=== PATIENT | female | born 1945 | race Caucasian/White ===

== ENCOUNTER 2022-01-13 08:43 | Outpatient (CLI) | payer MEDICARE ==
[2022-01-13 10:40] LABS: Estimated GFR-MDRD - POC Greater than 90
== END 2022-01-13 08:44 | disposition home or self-care (01) ==
LOC: CSHCT 08:43
PROVIDERS: ATTEND Internal Medicine Hematology & Oncology
DX: C82.08 Follicular lymphoma grade I, lymph nodes of multiple sites (principal)
CPT/HCPCS: 71260; 74177; 82565

== ENCOUNTER 2022-08-05 10:05 | Outpatient (CLI) | payer MEDICARE ==
[2022-08-05] MEDS ORDERED: Iopamidol 300 61% 100 ML VIAL FS ONE (12:48)
== END 2022-08-05 10:06 | disposition home or self-care (01) ==
LOC: CSHCT 10:05
PROVIDERS: ATTEND Internal Medicine Hematology & Oncology
DX: C85.90 Non-Hodgkin lymphoma, unspecified, unspecified site (principal); C85.93 Non-Hodgkin lymphoma, unspecified, intra-abdominal lymph nodes; C85.96 Non-Hodgkin lymphoma, unspecified, intrapelvic lymph nodes; C85.92 Non-Hodgkin lymphoma, unspecified, intrathoracic lymph nodes
CPT/HCPCS: 71260; 74177; 82565; Q9967

== ENCOUNTER 2023-08-03 09:15 | Outpatient (CLI) | payer MEDICARE ==
[2023-08-03] MEDS ORDERED: Iopamidol 300 61% 100 ML VIAL FS ONE (09:48)
== END 2023-08-03 09:16 | disposition home or self-care (01) ==
LOC: CSHCT 09:15
PROVIDERS: ATTEND Internal Medicine Hematology & Oncology
DX: C85.90 Non-Hodgkin lymphoma, unspecified, unspecified site (principal); R59.1 Generalized enlarged lymph nodes
CPT/HCPCS: 71260; 74177

== ENCOUNTER 2023-08-18 10:57 | Outpatient (CLI) | payer MEDICARE | END 2023-08-18 10:58 | disposition home or self-care (01) | LOC: CSHRAD 10:57 | PROVIDERS: ATTEND Family Medicine | DX: R04.2 Hemoptysis (principal); Z85.72 Personal history of non-Hodgkin lymphomas; I51.7 Cardiomegaly; R59.1 Generalized enlarged lymph nodes | CPT/HCPCS: 71046 ==

== ENCOUNTER 2023-09-02 10:45 | Inpatient (IN) | payer MEDICARE ==
[2023-09-02 14:30] LABS: #Monocytes 0.3 10x3/uL (0.0-1.1); #Neutrophils 3.4 10x3/uL (1.5-8.4); %Basophils 0.4 % (0.0-2.0); %Eosinophils 0.9 % (0.0-6.0); %Lymphocytes 19.4 % (18.0-47.0); %Monocytes 6.7 % (0.0-10.0); %Neutrophils 72.4 % (40.0-75.0); Hematocrit 28.5 % (34.9-44.5); Mean Corpuscular HGB CONC 31.6 g/dL (32.0-36.0); Mean Corpuscular Hemoglobin 25.1 pg (27.0-33.0); Mean Corpuscular Volume 79.4 fl (81.6-98.3); Mean Platelet Volume 9.7 fl (7.4-10.4); Platelet Count 80 10x3/uL (150-450); RBC Distribution Width 13.6 % (11.5-14.5); Red Blood Cell (RBC) Count 3.59 10x6/uL (3.90-5.03); White Blood Cell (WBC) Count 4.7 10x3/uL (3.5-10.5)
[2023-09-02 14:40] LABS: ALT (SGPT) 18 U/L (8-55); AST (SGOT) 18 U/L (5-34); Alkaline Phosphatase 70 U/L (40-110); Anion Gap 13 mmol/L (10-20); BUN (Urea Nitrogen) 14 mg/dL (9.8-20.1); Bilirubin, Total 0.3 mg/dL (0.2-1.2); Calc. Creatinine Clearance 0 mL/min (70-130); Calcium 8.4 mg/dL (7.8-10.44); Carbon Dioxide 23 mmol/L (23-31); Chloride 101 mmol/L (98-107); Estimated GFR 89; Globulin 2.3 g/dL (2.4-3.5); Glucose 104 mg/dL (83-110); Lipase 15 U/L (8-78); Potassium 3.9 mmol/L (3.5-5.1); Protein, Total 6.3 g/dL (5.8-8.1); Sodium 133 mmol/L (136-145)
[2023-09-02 14:46] LABS: Troponin I Less than 0.010 ng/mL (< 0.028)
[2023-09-02 15:01] LABS: Platelet Adequacy Comment Appears Decreased; Platelet Clumps SLIGHT
[2023-09-02] MEDS ORDERED: Pantoprazole 40 MG VIAL ONE (16:24)
[2023-09-02] MEDS ORDERED: Ondansetron ODT 4 MG TAB PO PRN (16:54)
[2023-09-02] MEDS ORDERED: Ondansetron PF 4 MG/2 ML Vial IVP PRN (16:54)
[2023-09-02] MEDS ORDERED: Ipratropium/Albuterol 3 ML NEB NEB PRN (16:59)
[2023-09-02] MEDS ORDERED: Acetaminophen 325 MG TAB PO PRN (16:59)
[2023-09-02] MEDS ORDERED: hydrALAZINE 20 MG/ML VIAL SLOW IVP PRN (17:01)
[2023-09-02 17:59] LABS: Hematocrit 28.6 % (34.9-44.5); Hemoglobin 9.1 g/dL (12.0-15.5); Platelet Count 176 10x3/uL (150-450)
[2023-09-02] MEDS ORDERED: Mometasone 100 MCG/PUFF (1 INHALER) INH SCH (20:30)
[2023-09-02 20:49] VITALS: BMI 37.2
[2023-09-02] MEDS ORDERED: Pantoprazole 40 MG VIAL IVP SCH (21:00)
[2023-09-02] MEDS: Doxycycline 100 MG in Sodium Chloride 0.9% 100 ML IVPB SCH (21:58)
[2023-09-02 22:03] LABS: Hemoglobin 9.4 g/dL (12.0-15.5); Platelet Count 193 10x3/uL (150-450)
[2023-09-02 22:46] LABS: Legionella Urinary Ag Negative (Negative); Strep pneumo Urine Ag NEGATIVE (NEGATIVE)
[2023-09-02] MEDS ORDERED: Lorazepam 2 MG/ML VIAL SLOW IVP SCH (23:45)
[2023-09-03 02:43] LABS: #Eosinphils 0.1 10x3/uL (0.0-0.5); #Monocytes 0.5 10x3/uL (0.0-1.1); #Neutrophils 4.7 10x3/uL (1.5-8.4); %Basophils 0.3 % (0.0-2.0); %Eosinophils 1.1 % (0.0-6.0); %Lymphocytes 14.5 % (18.0-47.0); %Monocytes 7.7 % (0.0-10.0); %Neutrophils 76.1 % (40.0-75.0); Hematocrit 26.5 % (34.9-44.5); Hemoglobin 8.4 g/dL (12.0-15.5); Mean Corpuscular HGB CONC 31.7 g/dL (32.0-36.0); Mean Corpuscular Hemoglobin 25.4 pg (27.0-33.0); Mean Corpuscular Volume 80.1 fl (81.6-98.3); Mean Platelet Volume 8.2 fl (7.4-10.4); Platelet Count 162 10x3/uL (150-450); RBC Distribution Width 13.8 % (11.5-14.5); Red Blood Cell (RBC) Count 3.31 10x6/uL (3.90-5.03); White Blood Cell (WBC) Count 6.2 10x3/uL (3.5-10.5)
[2023-09-03 04:00] LABS: Anion Gap 16 mmol/L (10-20); BUN (Urea Nitrogen) 14 mg/dL (9.8-20.1); Calc. Creatinine Clearance 88 mL/min (70-130); Calcium 8.2 mg/dL (7.8-10.44); Carbon Dioxide 20 mmol/L (23-31); Chloride 100 mmol/L (98-107); Estimated GFR 90; Glucose 98 mg/dL (83-110); Iron 19 ug/dL (50-170); Iron Binding Capacity, Total 286 mcg/dL (265-497); Potassium 3.8 mmol/L (3.5-5.1); Sodium 132 mmol/L (136-145)
[2023-09-03] MEDS: Levothyroxine Sodium 125 MCG TAB PO SCH (06:38)
[2023-09-03] MEDS: Doxycycline 100 MG in Sodium Chloride 0.9% 100 ML IVPB SCH ×2 (08:26→20:27)
[2023-09-03] MEDS: Amlodipine 10 MG TAB PO SCH (08:37)
[2023-09-03] MEDS: Losartan 50 MG TAB PO SCH (08:37)
[2023-09-03] MEDS ORDERED: Pantoprazole 40 MG VIAL IVP SCH (09:00)
[2023-09-03] MEDS: Mometasone 100 MCG/PUFF (1 INHALER) INH SCH ×3 (09:10→18:53)
[2023-09-03] MEDS ORDERED: PROPOFOL 40 ML ONE (11:45)
[2023-09-03] MEDS ORDERED: Glycopyrrolate 0.2 MG/ML 5 ML SYRINGE ONE (11:45)
[2023-09-03 18:26] LABS: SARS-CoV-2 NAA Rapid Test Not Detected (NotDetected)
[2023-09-03 21:26] LABS: Bilirubin Neg (Negative); Blood, Urine Negative (Negative); Clarity Clear (Clear); Glucose, Urine (Dipstick) Normal (Negative); Ketone, Urine Negative (Negative); Leukocyte 25 (Negative); Nitrite Negative (Negative); Protein, Urine (Dipstick) 15 mg/dl (Neg-Trace); Urobilinogen Normal mg/dL (Less than 2); pH, Urine 6.5 (5.0-9.0)
[2023-09-03 21:39] LABS: Bacteria/HPF Rare-Few HPF (None Seen); RBC/HPF None Seen HPF (0-3); Squamous Epithelial 0-3 HPF (0-3)
[2023-09-03] MEDS ORDERED: Zolpidem Tartrate 5 MG TAB PO PRN (22:53)
[2023-09-04] MEDS: Levothyroxine Sodium 125 MCG TAB PO SCH (05:39)
[2023-09-04 05:43] LABS: #Eosinphils 0.1 10x3/uL (0.0-0.5); #Monocytes 0.5 10x3/uL (0.0-1.1); #Neutrophils 2.9 10x3/uL (1.5-8.4); %Basophils 0.5 % (0.0-2.0); %Eosinophils 2.4 % (0.0-6.0); %Lymphocytes 16.7 % (18.0-47.0); %Monocytes 10.9 % (0.0-10.0); Hematocrit 26.3 % (34.9-44.5); Hemoglobin 8.3 g/dL (12.0-15.5); Mean Corpuscular HGB CONC 31.6 g/dL (32.0-36.0); Mean Corpuscular Hemoglobin 25.5 pg (27.0-33.0); Mean Corpuscular Volume 80.7 fl (81.6-98.3); Mean Platelet Volume 8.5 fl (7.4-10.4); Platelet Count 142 10x3/uL (150-450); RBC Distribution Width 13.7 % (11.5-14.5); Red Blood Cell (RBC) Count 3.26 10x6/uL (3.90-5.03); White Blood Cell (WBC) Count 4.1 10x3/uL (3.5-10.5)
[2023-09-04 06:02] LABS: Anion Gap 13 mmol/L (10-20); BUN (Urea Nitrogen) 11 mg/dL (9.8-20.1); Calc. Creatinine Clearance 94 mL/min (70-130); Calcium 8.4 mg/dL (7.8-10.44); Carbon Dioxide 19 mmol/L (23-31); Chloride 103 mmol/L (98-107); Estimated GFR 91; Glucose 89 mg/dL (83-110); Magnesium 1.7 mg/dL (1.6-2.6); Potassium 3.7 mmol/L (3.5-5.1); Sodium 131 mmol/L (136-145)
[2023-09-04] MEDS: Mometasone 100 MCG/PUFF (1 INHALER) INH SCH ×2 (07:20→09:28)
[2023-09-04] MEDS ORDERED: Fish Oil 1,000 MG CAP PO SCH (09:00)
[2023-09-04] MEDS ORDERED: Senokot S 8.6-50 MG TAB PO SCH ×3 (09:00→21:00)
[2023-09-04] MEDS ORDERED: Aspirin Chewable 81 MG TAB PO SCH (09:00)
[2023-09-04] MEDS ORDERED: Levothyroxine Sodium 125 MCG TAB PO SCH (09:00)
[2023-09-04] MEDS: Losartan 50 MG TAB PO SCH (09:58)
[2023-09-04] MEDS: Amlodipine 10 MG TAB PO SCH (10:00)
[2023-09-04] MEDS: Doxycycline 100 MG in Sodium Chloride 0.9% 100 ML IVPB SCH (10:01)
[2023-09-04] MEDS ORDERED: Polyethylene Glycol 3350 17 GM Packet PO SCH (11:00)
[2023-09-04 12:21] VITALS: BP 135/73; TEMP 98.4
[2023-09-04 14:23] LABS: Uric Acid 3.8 mg/dL (2.6-6.0)
[2023-09-05] MEDS ORDERED: Polyethylene Glycol 3350 17 GM Packet PO SCH (09:00)
[2023-09-06 23:12] LABS: Mycoplasma pneumoniae IgG AB 387 U/mL (0-99); Mycoplasma pneumoniae IgM AB 1340 U/mL (0-769)
[2023-09-07 07:26] LABS: QuantiFERON-TB Gold Plus POSITIVE (Negative)
[2023-09-07 12:12] LABS: ANA Symphony (Qualitative) Negative (Negative); ANA Symphony (Quantitative) 0.1 Ratio (< 0.7 Negative)
[2023-09-07 15:15] LABS: Cytoplasmic (C-ANCA) <1:20 titer (Neg:<1:20); Myeloperoxidase AutoAbs <0.2 units (0.0-0.9); Perinuclear (P-ANCA) <1:20 titer (Neg:<1:20); Proteinase-3 AutoAbs Less than 0.2 units (0.0-0.9)
== END 2023-09-04 14:44 | disposition home or self-care (01) | DRG 202 ==
LOC: CSHERS 10:45 → CSHTELE 19:58
PROVIDERS: ADMIT Student in an Organized Health Care Education/Training Program; ATTEND Family Medicine
PROC: 0DJ08ZZ Inspection of Upper Intestinal Tract, Via Natural or Artificial Opening Endoscopic (ICD-10-PCS; principal; 2023-09-03)
DX: J40 Bronchitis, not specified as acute or chronic (principal); R04.2 Hemoptysis; D50.9 Iron deficiency anemia, unspecified; R59.0 Localized enlarged lymph nodes; E66.9 Obesity, unspecified; E03.9 Hypothyroidism, unspecified; I12.9 Hypertensive chronic kidney disease with stage 1 through stage 4 chronic kidney disease, or unspecified chronic kidney disease; N18.9 Chronic kidney disease, unspecified; K63.89 Other specified diseases of intestine; D63.1 Anemia in chronic kidney disease; D69.6 Thrombocytopenia, unspecified; R16.1 Splenomegaly, not elsewhere classified; Z90.49 Acquired absence of other specified parts of digestive tract; Z98.51 Tubal ligation status; Z87.891 Personal history of nicotine dependence; Z79.82 Long term (current) use of aspirin; Z79.899 Other long term (current) drug therapy; Z11.52 Encounter for screening for COVID-19; Z68.37 Body mass index [BMI] 37.0-37.9, adult
CPT/HCPCS: 0241U; 36415; 71045; 71250; 80048; 80053; 81001; 82274; 82728; 83516; 83540; 83550; 83605; 83615; 83690; 83735; 83880; 84484; 84550; 85025; 86037; 86038; 86225; 86480; 86850; 86900; 86901; 87070; 87116; 87205; 87206; 87449; 87899; 93005; 94664; C9113; J2060; J2704; J3490

== ENCOUNTER 2025-02-25 14:44 | Outpatient (CLI) | payer OTHER | END 2025-02-25 14:45 | disposition home or self-care (01) | LOC: CSHWCC 14:44 | PROVIDERS: ATTEND Nurse Practitioner Family | DX: Z09 Encounter for follow-up examination after completed treatment for conditions other than malignant neoplasm (principal); Z87.2 Personal history of diseases of the skin and subcutaneous tissue; Z85.028 Personal history of other malignant neoplasm of stomach | CPT/HCPCS: 99212; G0463 ==

== ENCOUNTER 2025-03-12 12:01 | Outpatient (CLI) | payer OTHER | END 2025-03-12 12:02 | disposition home or self-care (01) | LOC: CSHWCC 12:01 | PROVIDERS: ATTEND Nurse Practitioner Family | DX: Z09 Encounter for follow-up examination after completed treatment for conditions other than malignant neoplasm (principal); Z87.2 Personal history of diseases of the skin and subcutaneous tissue; Z85.028 Personal history of other malignant neoplasm of stomach | CPT/HCPCS: 99212; G0463 ==

== ENCOUNTER 2025-03-28 12:46 | Emergency (ER) | payer OTHER | END 2025-03-28 13:31 | disposition left against medical advice (07) | LOC: CSHERS 12:46 | DX: Z53.21 Procedure and treatment not carried out due to patient leaving prior to being seen by health care provider (principal); I10 Essential (primary) hypertension ==